=== PATIENT | female | born 1950 | race Caucasian/White ===

== ENCOUNTER 2019-02-27 06:45 | Emergency (ER) | payer MEDICARE ==
[~2019-02-27] VITALS: Ht 170.2 cm; Wt 68.2 kg
[2019-02-27 06:50] VITALS: BP 132/53
== END 2019-02-27 07:52 | disposition home or self-care (01) ==
LOC: ER 06:46
DX: S90.852A Superficial foreign body, left foot, initial encounter (principal); R60.0 Localized edema; E11.9 Type 2 diabetes mellitus without complications; Z88.6 Allergy status to analgesic agent; Z88.8 Allergy status to other drugs, medicaments and biological substances; W22.8XXA Striking against or struck by other objects, initial encounter; Y93.89 Activity, other specified; Y92.89 Other specified places as the place of occurrence of the external cause; Y99.8 Other external cause status
CPT/HCPCS: 73630; 99283

== ENCOUNTER 2020-11-15 12:55 | Emergency (ER) | payer MEDICARE, OTHER ==
[~2020-11-15] VITALS: Ht 167.6 cm; Wt 61.8 kg
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
[2020-11-15 13:26] LABS: BASOPHILS # (AUTO) 0.1 X10'3 (0-0.2); BASOPHILS % (AUTO) 1.1 % (0-1); EOSINOPHILS # (AUTO) 0.2 X10'3 (0-0.9); EOSINOPHILS % (AUTO) 2.3 % (0-6); HEMATOCRIT 43.4 % (35.0-45.0); HEMOGLOBIN 14.5 g/dl (12.0-16.0); LYMPHOCYTES # (AUTO) 2.9 X10'3 (1.1-4.8); LYMPHOCYTES % (AUTO) 32.1 % (21-51); MEAN CORPUSCULAR HEMOGLOBIN 31.6 PG (27.0-31.0); MEAN CORPUSCULAR HGB CONC 33.4 g/dL (33.0-36.5); MEAN CORPUSCULAR VOLUME 94.8 FL (78-98); MEAN PLATELET VOLUME 8.7 FL (7.4-10.4); MONOCYTES # (AUTO) 0.4 X10'3 (0-0.9); NEUTROPHILS # (AUTO) 5.3 X10'3 (1.8-7.7); NEUTROPHILS % (AUTO) 59.5 % (42-75); PLATELET COUNT 206 X10'3 (140-440); RED BLOOD COUNT 4.58 X10'6 (4.20-5.60); RED CELL DISTRIBUTION WIDTH 13.9 % (11.5-14.5)
[2020-11-15 13:38] LABS: ALANINE AMINOTRANSFERASE 39 U/L (12-78); ALBUMIN 3.9 G/DL (3.4-5.0); ALBUMIN/GLOBULIN RATIO 1.1 (1.1-1.5); ALKALINE PHOSPHATASE 93 IU/L (46-116); ANION GAP 14 (8-16); ASPARTATE AMINO TRANSFERASE 21 U/L (10-37); BILIRUBIN,TOTAL 0.3 MG/DL (0.1-1.0); BLOOD UREA NITROGEN 12 MG/DL (7-18); BUN/CREATININE RATIO 15.4 (6.6-38.0); CHLORIDE 107 MMOL/L (99-107); CREATININE 0.78 MG/DL (0.40-0.90); GLUCOSE 119 MG/DL (70-104); POTASSIUM 3.8 MMOL/L (3.5-5.1); SODIUM 142 MMOL/L (135-145); TOTAL CARBON DIOXIDE 21.5 MMOL/L (24-32); TOTAL PROTEIN 7.6 G/DL (6.4-8.2); eGFR 73 ML/MIN
[2020-11-15 13:48] LABS: ETHANOL < 0.010 GM/DL (0.0-0.010)
[2020-11-15 14:48] LABS: CLARITY,URINE CLEAR (Clear); COLOR,URINE YELLOW (Yellow); GLUCOSE, URINE >=1000 mg/dl (Neg); KETONES,URINE NEGATIVE (Neg); LEUKOCYTE ESTERASE ,URINE NEGATIVE (Neg); NITRITES, URINE NEGATIVE (Neg); OCCULT BLOOD,URINE LARGE (Neg); PH,URINE 5.5 (4.8-8.0); PROTEIN,URINE NEGATIVE (Neg); UROBILINOGEN,URINE 0.2 E.U/dL (0.2-1.0)
[2020-11-15 14:54] LABS: UA COLLECTION TYPE NON-SPECIFIED
[2020-11-15 14:55] LABS: BACTERIA,URINE NONE SEEN /HPF (Neg); MUCUS STRANDS NONE SEEN /LPF (Neg); SQUAMOUS EPITHELIAL CELL,UR FEW /LPF (FEW); WBC,URINE NONE SEEN /HPF (0-4)
--- NOTE | 2020-11-15 15:09 | NUR ---
Pt back from [place]- pt has been calm and coopertive. No behaviors to report. Pt continues to deny S/I, H/I. States she has visual hallucinations r/t her TBI and not psych reasons.
[2020-11-15 15:10] LABS: URINE AMPHETAMINE SCREEN NEGATIVE (Neg); URINE BARBITUATE SCREEN NEGATIVE (Neg); URINE BENZODIAZEPINES SCREEN NEGATIVE (Neg); URINE CANNABINOID SCREEN NEGATIVE (Neg); URINE COCAINE SCREEN NEGATIVE (Neg); URINE METHADONE SCREEN NEGATIVE (Neg); URINE OPIATE SCREEN NEGATIVE (Neg); URINE PHENCYCLIDINE SCREEN NEGATIVE (Neg)
[2020-11-15] MEDS ORDERED: GABA600T13 PO (15:35)
[2020-11-15] MEDS ORDERED: OXCA300T16 PO (15:35)
[2020-11-15] MEDS ORDERED: INSU100I25 SQ (15:35)
[2020-11-15] MEDS ORDERED: METH-348 PO (15:35)
[2020-11-15] MEDS ORDERED: TOLT4CAP14 PO (15:35)
[2020-11-15] MEDS ORDERED: METF-438 PO (15:35)
[2020-11-15] MEDS ORDERED: ALPR0.5T9 PO (15:35)
[2020-11-15] MEDS ORDERED: DONE10TA7 PO (15:38)
[2020-11-15] MEDS ORDERED: GLIM4TAB7 PO (15:39)
[2020-11-15] MEDS ORDERED: RALO60TA PO (15:40)
[2020-11-15] MEDS ORDERED: EMPA10TA PO (15:41)
[2020-11-15] MEDS ORDERED: VENL150C2 PO (15:52)
[2020-11-15] MEDS ORDERED: ROSU5TAB PO (15:52)
[2020-11-15] MEDS ORDERED: ALPRAZolam 0.5mg tablet PO PRN (16:20)
--- NOTE | 2020-11-15 16:55 | NUR ---
Pt resting on her bed comfortaby, no distress noted.
--- NOTE | 2020-11-15 16:55 | NUR ---
Faxed packet to [facility].
--- NOTE | 2020-11-15 19:23 | NUR ---
The patient has been social and visiting with female peer. She has been laughing and talking about movies. [facility] is currently at the bedside and interviewing the patient.
[2020-11-15] MEDS: metFORMIN 500mg tablet PO SCH (20:37)
[2020-11-15] MEDS: gabapentin 300mg capsule PO SCH (20:38)
[2020-11-15] MEDS: oxcarbazepine 150mg tablet PO SCH (20:38)
[2020-11-15] MEDS: insulin glargine (Lantus) pen - multi-dose SQ SCH (20:40)
[2020-11-15] MEDS: oxybutynin 5mg tablet PO SCH (20:45)
--- NOTE | 2020-11-15 20:56 | NUR ---
Per [facility] she will be kept on the 5150 hold. She currently is resting on her bed and eating an HS snack.
--- NOTE | 2020-11-15 22:53 | NUR ---
The patient appears to be sleeping. She has been accepted at [facility] for an leacher transfer
--- NOTE | 2020-11-15 23:33 | NUR ---
Patient up to use the bathroom and covid swab collected.
--- NOTE | 2020-11-16 01:05 | NUR ---
THe patient appears to be sleeping
--- NOTE | 2020-11-16 04:09 | NUR ---
The patient appears to be sleeping
--- NOTE | 2020-11-16 06:31 | NUR ---
Received patient sleeping, respirations even and unlabored.
[2020-11-16] MEDS ORDERED: donepezil 5mg tablet PO SCH (08:00)
[2020-11-16] MEDS ORDERED: methylphenidate 5mg tablet PO SCH (08:00)
[2020-11-16] MEDS ORDERED: venlafaxine XR 75mg capsule (Q24H) PO SCH (08:00)
[2020-11-16] MEDS ORDERED: raloxifene 60mg tablet PO SCH (08:00)
[2020-11-16] MEDS: insulin glargine (Lantus) pen - multi-dose SQ SCH (08:23)
[2020-11-16] MEDS: oxcarbazepine 150mg tablet PO SCH (08:30)
[2020-11-16] MEDS: metFORMIN 500mg tablet PO SCH (08:30)
[2020-11-16] MEDS: oxybutynin 5mg tablet PO SCH (08:30)
[2020-11-16] MEDS: gabapentin 300mg capsule PO SCH (08:30)
[2020-11-16] MEDS ORDERED: Empagliflozin (Jardiance) 25 MG TAB PO SCH (08:35)
[2020-11-16 08:48] VITALS: BP 121/71
--- NOTE | 2020-11-16 08:55 | NUR ---
DISCHARGE NOTE: Pt left unit at 0845 and was taken to [facility]. Pt left with all personal belongings. Morning medications were adminstered. Pt was escorted by CRN and security. Pt was pleasant and talkative with rapid speech. Pt's thought process was circumstantial.
[2020-11-16] MEDS ORDERED: ACET-1025 PO (10:03)
== END 2020-11-16 08:57 | disposition home or self-care (01) ==
LOC: ER 12:55
DX: R45.6 Violent behavior (principal); Z20.822 Contact with and (suspected) exposure to COVID-19; R22.0 Localized swelling, mass and lump, head; E11.9 Type 2 diabetes mellitus without complications; F17.200 Nicotine dependence, unspecified, uncomplicated; Z87.820 Personal history of traumatic brain injury; Z88.0 Allergy status to penicillin; Z88.8 Allergy status to other drugs, medicaments and biological substances; Z79.899 Other long term (current) drug therapy
CPT/HCPCS: 36415; 70450; 70486; 80053; 80305; 80320; 81001; 82948; 84443; 85025; 87635; 96372; 99285; C9803; J1815